=== PATIENT | male | born 1980 | race Asian ===

== ENCOUNTER 2018-07-30 08:55 | Emergency (ER) | payer BC, OTHER ==
[~2018-07-30] VITALS: Ht 154.9 cm; Wt 68.0 kg
--- NOTE | 2018-07-30 09:24 | PHYS DOC ---
Past Medical History Past Medical History: No Pertinent History Past Surgical History: No Surgical History Alcohol Use: None Drug Use: None Adult General Chief Complaint Chief Complaint: HEADACHE HPI HPI Patient is a 37 year old female with no significant medical history who presents today complaining of 9 out of 10 generalized throbbing headache, stiff neck, nausea and subjective fevers for 3 days. Patient denies any vomiting. She denies anything relieving or alleviating the pain. Denies any photophobia. Press Service Reader line used for [place] Review of Systems Review of Systems Constitutional: Reports subjective fevers Eyes: Denies change in visual acuity, redness, or eye pain [] HENT: Denies nasal congestion or sore throat [] Respiratory: Denies cough or shortness of breath [] Cardiovascular: No additional information not addressed in HPI [] GI: Reports nausea. Denies abdominal pain, vomiting, bloody stools or diarrhea [] : Denies dysuria or hematuria [] Musculoskeletal: Denies back pain or joint pain [] Integument: Denies rash or skin lesions [] Neurologic: Reports headache, denies focal weakness or sensory changes [] All other systems were reviewed and found to be within normal limits, except as documented in this note. Current Medications Current Medications Current Medications Medications (Trade) Dose Ordered Sig/Jerson Start Time Stop Time Status Last Admin Dose Admin Acetaminophen (Tylenol) 1,000 mg 1X ONCE 07/30/18 09:30 07/30/18 09:58 DC 07/30/18 10:08 1,000 MG Dexamethasone Sodium Phosphate (Decadron) 10 mg 1X ONCE 07/30/18 09:30 07/30/18 09:58 DC 07/30/18 10:08 10 MG Lidocaine HCl 20 ml 1X ONCE 07/30/18 10:30 07/30/18 10:31 DC Ondansetron HCl (Zofran) 4 mg 1X ONCE 07/30/18 09:30 07/30/18 09:58 DC 07/30/18 10:09 4 MG Sodium Chloride 1,000 ml @ 1,000 mls/hr 1X ONCE 07/30/18 09:30 07/30/18 10:29 DC 07/30/18 10:09 1,000 MLS/HR Allergies Allergies Allergies Coded Allergies Type Severity Reaction Last Updated Verified No Known Drug Allergies 07/30/18 No Physical Exam Physical Exam Constitutional: Well developed, well nourished, no acute distress, non-toxic appearance. [] HENT: Normocephalic, atraumatic, bilateral external ears normal, oropharynx moist, no oral exudates, nose normal. [] Eyes: PERRLA, EOMI, conjunctiva normal, no discharge. [] Neck: Normal range of motion, though patient complained of pain all through range of motion including flexion and extension of the neck as well as range of motion to the right and left sides. No tenderness, supple, no stridor. [] Cardiovascular:Heart rate regular rhythm, no murmur [] Lungs & Thorax: Bilateral breath sounds clear to auscultation [] Abdomen: Bowel sounds normal, soft, no tenderness, no masses, no pulsatile masses. [] Skin: Warm, dry, no erythema, no rash. [] Back: No tenderness, no CVA tenderness. [] Extremities: No tenderness, no cyanosis, no clubbing, ROM intact, no edema. Missing distal ends of index finger and middle finger on the left hand. Neurologic: Alert and oriented X 3, normal motor function, normal sensory function, no focal deficits noted. Cranial nerves II through XII intact Psychologic: Affect normal, judgement normal, mood normal. [] Current Patient Data Vital Signs Vital Signs Date Time Temp Pulse Resp B/P (MAP) Pulse Ox O2 Delivery O2 Flow Rate FiO2 07/30/18 12:29 88 15 97 07/30/18 09:13 98.4 130/72 (91) Room Air 98.4 Lab Values Laboratory Tests Test 07/30/18 09:30 07/30/18 11:15 White Blood Count 8.2 x10^3/uL (4.0-11.0) Red Blood Count 5.32 x10^6/uL (4.30-5.70) Hemoglobin 16.2 g/dL (13.0-17.5) Hematocrit 45.9 % (39.0-53.0) Mean Corpuscular Volume 86 fL (79-100) Mean Corpuscular Hemoglobin 31 pg (25-35) Mean Corpuscular Hemoglobin Concent 35 g/dL (31-37) Red Cell Distribution Width 12.4 % (11.5-14.5) Platelet Count 171 x10^3/uL (140-400) Neutrophils (%) (Auto) 63 % (31-73) Lymphocytes (%) (Auto) 22 % (24-48) L Monocytes (%) (Auto) 12 % (0-9) H Eosinophils (%) (Auto) 3 % (0-3) Basophils (%) (Auto) 0 % (0-3) Neutrophils # (Auto) 5.2 x10^3uL (1.8-7.7) Lymphocytes # (Auto) 1.8 x10^3/uL (1.0-4.8) Monocytes # (Auto) 1.0 x10^3/uL (0.0-1.1) Eosinophils # (Auto) 0.2 x10^3/uL (0.0-0.7) Basophils # (Auto) 0.0 x10^3/uL (0.0-0.2) Sodium Level 139 mmol/L (136-145) Potassium Level 3.6 mmol/L (3.5-5.1) Chloride Level 104 mmol/L (98-107) Carbon Dioxide Level 24 mmol/L (21-32) Anion Gap 11 (6-14) Blood Urea Nitrogen 21 mg/dL (8-26) Creatinine 0.8 mg/dL (0.7-1.3) Estimated GFR (Cockcroft-Gault) 110.0 BUN/Creatinine Ratio 26 (6-20) H Glucose Level 104 mg/dL (70-99) H Lactic Acid Level 0.9 mmol/L (0.4-2.0) Calcium Level 9.3 mg/dL (8.5-10.1) Total Bilirubin 1.1 mg/dL (0.2-1.0) H Aspartate Amino Transferase (AST) 23 U/L (15-37) Alanine Aminotransferase (ALT) 47 U/L (16-63) Alkaline Phosphatase 79 U/L (46-116) Total Protein 8.1 g/dL (6.4-8.2) Albumin 4.1 g/dL (3.4-5.0) Albumin/Globulin Ratio 1.0 (1.0-1.7) Lipase 163 U/L (73-393) Ethyl Alcohol Level < 10 mg/dL (0-10) Influenza Type A Antigen Negative (NEGATIVE) Influenza Type B Antigen Negative (NEGATIVE) CSF Tube Number 4 CSF Color Colorless CSF Clarity Clear CSF WBC 3 CSF RBC 4 CSF Glucose 57 mg/dL (37-70) CSF Total Protein 20.3 mg/dL (15.0-45.0) Laboratory Tests 07/30/18 09:30 Laboratory Tests 07/30/18 09:30 Microbiology 07/30/18 CSF Gram Stain - Final, Complete Microbiology 07/30/18 CSF Gram Stain - Final, Complete EKG EKG [] Radiology/Procedures Radiology/Procedures []PROCEDURE: CHEST PA & LATERAL Chest, 2 views, 07/30/2018: HISTORY: Headache, fever The heart size is normal. No pulmonary infiltrate is seen. There is no evidence of pleural fluid. IMPRESSION: No acute cardiopulmonary abnormality is detected. Electronically signed by: Jame Bain MD (07/30/2018 10:00 AM) [facility] DICTATED and SIGNED BY: JAME BAIN MD DATE: 07/30/18 0959 PROCEDURE: CT HEAD WO CONTRAST PQRS Compliance Statement: One or more of the following individualized dose reduction techniques were utilized for this examination: 1. Automated exposure control 2. Adjustment of the mA and/or kV according to patient size 3. Use of iterative reconstruction technique CT HEAD WITHOUT CONTRAST History: HEADACHE Comparison: None. Procedure: Axial images are obtained of the head from the skull base through the vertex without IV contrast. Findings: The ventricles and sulci are normal for the patient's age. No mass-effect, midline shift, hemorrhage, extra-axial fluid collection, or obvious acute infarction is identified. Basilar cisterns are patent. Bone windows demonstrate no acute calvarial abnormality. Mild mucosal thickening bilateral ethmoid sinuses. The maxillary sinuses are incompletely imaged. Tiny linear opacity is noted in the left maxillary sinus. Mastoid air cells are well aerated. IMPRESSION: No acute intracranial abnormality. Electronically signed by: Seth Zepeda MD (07/30/2018 10:32 AM) [id number] DICTATED and SIGNED BY: SETH ZEPEDA MD DATE: 07/30/18 1024 Course & Med Decision Making Course & Med Decision Making Pertinent Labs and Imaging studies reviewed. (See chart for details) This is a 37-year-old male patient presenting to the ED today with headache, neck stiffness, subjective fevers, nausea for 3 days. Patient is on arrival to the ED temperature is 98.4, heart rate 97, respiration 16 on room air, blood pressure 130/72, O2 sats 98% on room air. CBC with normal WBC, CMP with no acute findings. CT of the head is negative for any acute findings, negative influenza A or B, chest x-ray is negative for any acute findings as interpreted by radiologist. Dr. Byrd performed a lumbar puncture. CSF fluid with WBC of 3 Patient was discharged to home. At this point is less likely with his symptoms are meningitis related. Will be discharge with ibuprofen for his headache, cyclobenzaprine as well to help with the neck pain. Zofran for nausea/ vomiting. Instructed to follow-up with the PCP in the course of next week. Provided return precautions and discharged in stable condition. The area was prepped and draped in the usual sterile fashion. Informed consent was obtained prior to the procedure with orthodontist line. Lidocaine was used for subcutaneous anesthesia. The L2-3 interspace was entered with a 20-gauge needle clear CSF was returned the patient tolerated well neuro intact after the procedure. 3 attempts total to sitting up and then finally a third attempt lying flat was successful patient tolerated well neuro intact after the procedure I saw and evaluated this patient in the er talked to him with orthodontist line. symptoms likely viral. however vague symptoms and appeasr uncomfortable so proceed withl ct/lp. Dragon Disclaimer Dragon Disclaimer This electronic medical record was generated, in whole or in part, using a voice recognition dictation system. Departure Departure Impression: Primary Impression: Nausea Additional Impressions: Headache Neck pain Disposition: 01 HOME, SELF-CARE Condition: STABLE Patient Instructions: General Headache Without Cause, Nausea and Vomiting, Easy -to-Read Additional Instructions: You were revaluated in the emergency room for headache. We put you medications, take them as prescribed. Follow-up with your doctor in 1-2 weeks. Scripts Ondansetron (ZOFRAN ODT) 4 Mg Tab.rapdis 1 TAB SL Q8HRS, #15 TAB Prov: [employer] 07/30/18 Acetaminophen (TYLENOL) 325 Mg Tablet 1-2 TAB PO QID, #60 TAB 2 Refills Prov: MUTUNGA[employer] 07/30/18 Ibuprofen (IBUPROFEN) 600 Mg Tablet 600 MG PO PRN Q6HRS PRN for INFLAMMATION, #30 TAB Prov: [employer] 07/30/18 Problem Qualifiers Additional Impressions: Headache Headache type: unspecified Headache chronicity pattern: acute headache Intractability: not intractable Qualified Codes: R51 - Headache ADDY ARIAS APRN Jul 30, 2018 09:24 CIERRA BYRD MD Jul 30, 2018 12:44
[2018-07-30] MEDS ORDERED: ONDANSETRON PF 4 MG/2 ML VIAL. IV ONE (09:30)
[2018-07-30] MEDS ORDERED: ACETAMINOPHEN 500 MG TABLET PO ONE (09:30)
[2018-07-30] MEDS ORDERED: DEXAMETHASONE SOD PHOS 20 MG/5 ML VIAL. IV ONE (09:30)
[2018-07-30] MEDS ORDERED: IV NORMAL SALINE 1000ML BAG 1,000 ML IV ONE (09:30)
[2018-07-30 09:41] LABS: BASO % 0 % (0-3); EOS # 0.2 x10^3/uL (0.0-0.7); EOS % 3 % (0-3); HEMATOCRIT 45.9 % (39.0-53.0); HEMOGLOBIN 16.2 g/dL (13.0-17.5); LYMPH # 1.8 x10^3/uL (1.0-4.8); LYMPH % 22 % (24-48); MEAN CORPUSCULAR HEMOGLOBIN 31 pg (25-35); MEAN CORPUSCULAR HGB CONC 35 g/dL (31-37); MEAN CORPUSCULAR VOLUME 86 fL (79-100); MONO % 12 % (0-9); NEUT # 5.2 x10^3uL (1.8-7.7); NEUT % 63 % (31-73); PLATELET COUNT 171 x10^3/uL (140-400); RED BLOOD COUNT 5.32 x10^6/uL (4.30-5.70); RED CELL DISTRIBUTION WIDTH 12.4 % (11.5-14.5); WHITE BLOOD COUNT 8.2 x10^3/uL (4.0-11.0)
--- NOTE | 2018-07-30 10:03 | RAD ---
Chest, 2 views, 07/30/2018: HISTORY: Headache, fever The heart size is normal. No pulmonary infiltrate is seen. There is no evidence of pleural fluid. IMPRESSION: No acute cardiopulmonary abnormality is detected. Electronically signed by: Jame Bain MD (07/30/2018 10:00 AM) [facility]
[2018-07-30 10:04] LABS: ALBUMIN 4.1 g/dL (3.4-5.0); CALCIUM 9.3 mg/dL (8.5-10.1); CREATININE 0.8 mg/dL (0.7-1.3); INFLUENZA A PATIENT NEGATIVE (NEGATIVE); INFLUENZA B PATIENT NEGATIVE (NEGATIVE); POTASSIUM 3.6 mmol/L (3.5-5.1); TOTAL BILIRUBIN 1.1 mg/dL (0.2-1.0); TOTAL PROTEIN 8.1 g/dL (6.4-8.2)
[2018-07-30] MEDS ORDERED: LIDOCAINE 2% 20 ML VIAL. IJ ONE (10:30)
--- NOTE | 2018-07-30 10:35 | RAD ---
PQRS Compliance Statement: One or more of the following individualized dose reduction techniques were utilized for this examination: 1. Automated exposure control 2. Adjustment of the mA and/or kV according to patient size 3. Use of iterative reconstruction technique CT HEAD WITHOUT CONTRAST History: HEADACHE Comparison: None. Procedure: Axial images are obtained of the head from the skull base through the vertex without IV contrast. Findings: The ventricles and sulci are normal for the patient's age. No mass-effect, midline shift, hemorrhage, extra-axial fluid collection, or obvious acute infarction is identified. Basilar cisterns are patent. Bone windows demonstrate no acute calvarial abnormality. Mild mucosal thickening bilateral ethmoid sinuses. The maxillary sinuses are incompletely imaged. Tiny linear opacity is noted in the left maxillary sinus. Mastoid air cells are well aerated. IMPRESSION: No acute intracranial abnormality. Electronically signed by: Seth Zepeda MD (07/30/2018 10:32 AM) [id number]
[2018-07-30] MEDS ORDERED: 0.9 % SOD CHL for STERILE FIELD 10 ML DISP.SYRIN. ONE (11:00)
[2018-07-30 11:41] LABS: CSF PROTEIN 20.3 mg/dL (15.0-45.0)
[2018-07-30 12:19] LABS: CSF CLARITY CLEAR; CSF COLOR COLORLESS; CSF RBC COUNT 4; CSF WBC COUNT 3
[2018-07-30 12:29] VITALS: BP 107/61
[2018-07-30] MEDS ORDERED: IBUP-1007 PO (12:30)
[2018-07-30] MEDS ORDERED: ONDA4TAB10 SL (12:30)
[2018-07-30] MEDS ORDERED: ACET325T9 PO (12:30)
== END 2018-07-30 13:12 | disposition home or self-care (01) ==
LOC: ER 08:55
DX: R51 Headache (principal); M43.6 Torticollis; R11.0 Nausea
CPT/HCPCS: 36415; 62270; 70450; 71046; 80053; 82945; 83605; 83690; 84157; 85025; 87040; 87071; 87075; 87804; 89051; 96361; 96374; 96375; 99285; G0480; J1100; J2405; J7030; 87529